=== PATIENT | male | born 1990 | race American Indian/Alaskan Native ===

== ENCOUNTER 2021-01-20 14:50 | Emergency (ER) | payer OTHER ==
[2021-01-20 15:40] VITALS: BP 171/85
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
== END 2021-01-20 16:00 | disposition home or self-care (01) ==
LOC: ED 14:50
DX: S16.1XXA Strain of muscle, fascia and tendon at neck level, initial encounter (principal); S00.81XA Abrasion of other part of head, initial encounter; E66.01 Morbid (severe) obesity due to excess calories; Z68.43 Body mass index [BMI] 50.0-59.9, adult; Z79.899 Other long term (current) drug therapy; V49.49XA Driver injured in collision with other motor vehicles in traffic accident, initial encounter; Y92.410 Unspecified street and highway as the place of occurrence of the external cause; Y93.89 Activity, other specified; Y99.8 Other external cause status
CPT/HCPCS: 99282